=== PATIENT | male | born 1950 | race Caucasian/White ===

== ENCOUNTER 2019-11-01 12:43 | Emergency (ER) | payer MEDICARE, BC ==
[2019-11-01] MEDS ORDERED: Diltiazem 25 MG/5 ML SDV IVPUSH ONE ×2 (13:35→14:33)
[2019-11-01] MEDS ORDERED: Sodium Chloride 0.9% 1,000 ML IV SCH (13:45)
--- NOTE | 2019-11-01 13:45 | EDM.PDOC ---
ED HPI GENERAL MEDICAL PROBLEM - General Chief Complaint: Cardiovascular Problem Stated Complaint: ABD/GUT PAIN, CONSTIPATION Time Seen by Provider: 11/01/19 12:46 Source of Information: Reports: Patient History Limitations: Reports: No Limitations - History of Present Illness INITIAL COMMENTS - FREE TEXT/NARRATIVE: 68 y/o male on no medication and no signif health problems presents by personal car from the [facility] complaining of abdominal bloating and fast heart rate. It started 2 days ago. Symptoms worsen with working in his garage and better with rest. He denies SOB, chest pain or peripheral edema. He denies N/V , fever or chills. He is not sweating. He denies heart problems and is not a smoker. He denies DM. He denies a history of A. Fib. His etoh use is occasional. Abdomen Pain Score (Numeric/FACES): 2 - Related Data Allergies Allergy/AdvReac Type Severity Reaction Status Date / Time No Known Allergies Allergy Verified 11/01/19 14:09 Home Meds: Home Meds NK [No Known Home Meds] 11/01/19 [History] Past Medical History HEENT History: Reports: Hard of Hearing Gastrointestinal History: Reports: Chronic Constipation, Other (See Below) Other Gastrointestinal History: abd. pain Genitourinary History: Reports: Renal Calculus Musculoskeletal History: Reports: Other (See Below) Other Musculoskeletal History: burcitis both shoulders - Past Surgical History Head Surgeries/Procedures: Reports: None HEENT Surgical History: Reports: None GI Surgical History: Reports: None Male Surgical History: Reports: None Musculoskeletal Surgical History: Reports: None Social & Family History - Tobacco Use Smoking Status *Q: Former Smoker Years of Tobacco use: 20 Packs/Tins Daily: 1 Used Tobacco, but Quit: No ED ROS GENERAL - Review of Systems Review Of Systems: See Below Constitutional: Reports: Decreased Appetite. Denies: Fever, Chills, Diaphoresis HEENT: Reports: No Symptoms Respiratory: Denies: Shortness of Breath, Cough Cardiovascular: Denies: Chest Pain, Dyspnea on Exertion, Edema, Palpitations Endocrine: Denies: Polydypsia, Polyuria GI/Abdominal: Reports: Constipation, Distension. Denies: Nausea, Vomiting : Reports: No Symptoms. Denies: Dysuria, Frequency Musculoskeletal: Reports: No Symptoms Skin: Reports: No Symptoms Neurological: Denies: Syncope Psychiatric: Reports: No Symptoms ED EXAM, GENERAL - Physical Exam Exam: See Below Exam Limited By: No Limitations General Appearance: Alert, WD/WN, No Apparent Distress Nose: Normal Inspection, Normal Mucosa Head: Atraumatic, Normocephalic Neck: Normal Inspection, Supple, Other (No JVD) Respiratory/Chest: No Respiratory Distress, Lungs Clear, Normal Breath Sounds Cardiovascular: Normal Peripheral Pulses, No JVD GI/Abdominal: Normal Bowel Sounds, Soft, Non-Tender, No Distention Extremities: No: Pedal Edema Neurological: Alert, Oriented, Normal Cognition, Normal Gait Psychiatric: Normal Affect, Normal Mood Skin Exam: Warm, Dry, Intact Course - Vital Signs Text/Narrative:: This patient has new atrial fib and has been symptomatic for 2-5 days. His symptoms included abdominal bloating. His ECG from the clinic showed atrial fib with RVR and his BP was normal. His chest xr was non acute. His BNP was elevated and had a normal CBC and comprehensive metabolic profile except for an elevated bilirubin. He had a US that showed cholelithiasis without cholecystitis and a normal CBD. He was given IV diltiazem 15 mg bolus and responded well but did not convert to normal sinus. He eventually went back into a rapid vent rate and responded to another bolus of 20 mg with diltiazem CD 120 po. He felt much better with less abdominal distension. He had a CT abd and pelvis that showed some retroperitoneal stranding in fat pad layers that was anasarca. His CHADsVasc score is 1. We discussed elective cardioversion vs rate control and he wants to think about and will make an appointment with a primary care doctor in follow up and further discussion. He was given an Rx of Diltiazem CD 120 mg qd and Lasix 20 mg qd. He will make an appointment with a primary care or internal medicine doctor in the clinic. He will take a baby aspirin once a day (CHADsVAsc score is low and antiplatlet therapy is adequate for stroke prophylaxis). He was discharged from the ER in stable condition. Last Recorded V/S: Last Vital Signs Temp 36.3 C 11/01/19 13:14 Pulse 120 H 11/01/19 14:59 Resp 16 11/01/19 13:14 BP 121/69 11/01/19 14:59 Pulse Ox 98 11/01/19 13:14 - Orders/Labs/Meds Orders: Active Orders 24 hr Category Date Time Status URINALYSIS W/MICROSCOPIC [UA W/MICROSCOPIC] [URIN] Stat Lab 11/01/19 13:38 Ordered Sodium Chloride 0.9% [Normal Saline] 1,000 ml Med 11/01/19 13:45 Active IV ASDIRECTED Sodium Chloride 0.9% [Normal Saline] 100 ml Med 11/01/19 15:15 Active IV ASDIRECTED Medication Orders Sodium Chloride (Normal Saline) 1,000 mls @ 1,000 mls/hr IV ASDIRECTED JACQUES Last Admin: 11/01/19 13:42 Dose: 1,000 mls/hr Sodium Chloride (Normal Saline) 100 mls @ 3.5 mls/sec IV ASDIRECTED JACQUES Last Admin: 11/01/19 15:26 Dose: 3.5 mls/sec Labs: Laboratory Tests 11/01/19 11/01/19 11/01/19 Range/Units 13:45 13:45 13:45 WBC 5.4 (4.5-11.0) K/uL RBC 4.98 (4.30-5.90) M/uL Hgb 15.3 H (12.0-15.0) g/dL Hct 48.0 (40.0-54.0) % MCV 96 (80-98) fL MCH 31 (27-31) pg MCHC 32 (32-36) % Plt Count 144 L (150-400) K/uL Neut % (Auto) 65 (36-66) % Lymph % (Auto) 19 L (24-44) % [place] % (Auto) 14 H (2-6) % Eos % (Auto) 2 (2-4) % Baso % (Auto) 1 (0-1) % PT (9.5-12.0) sec INR (0.80-1.20) Sodium (140-148) mmol/L Potassium (3.6-5.2) mmol/L Chloride (100-108) mmol/L Carbon Dioxide (21-32) mmol/L Anion Gap (5.0-14.0) mmol/L BUN (7-18) mg/dL Creatinine (0.8-1.3) mg/dL Est Cr Clr Drug Dosing mL/min Estimated GFR (MDRD) (>60) Glucose (74-106) mg/dL Calcium (8.5-10.1) mg/dL Total Bilirubin (0.2-1.0) mg/dL AST (15-37) U/L ALT (12-78) U/L Alkaline Phosphatase (46-116) U/L C-Reactive Protein (0.0-0.3) mg/dL NT-Pro-B Natriuret Pep 1964 H (5-125) pg/mL Total Protein (6.4-8.2) g/dL Albumin (3.4-5.0) g/dL Globulin (2.3-3.5) g/dL Albumin/Globulin Ratio (1.2-2.2) Lipase (73-393) U/L TSH, Ultra Sensitive 2.032 (0.358-3.740) uIU/mL 11/01/19 11/01/19 11/01/19 Range/Units 13:45 13:45 13:45 WBC (4.5-11.0) K/uL RBC (4.30-5.90) M/uL Hgb (12.0-15.0) g/dL Hct (40.0-54.0) % MCV (80-98) fL MCH (27-31) pg MCHC (32-36) % Plt Count (150-400) K/uL Neut % (Auto) (36-66) % Lymph % (Auto) (24-44) % [place] % (Auto) (2-6) % Eos % (Auto) (2-4) % Baso % (Auto) (0-1) % PT 12.9 H (9.5-12.0) sec INR 1.21 H (0.80-1.20) Sodium 140 (140-148) mmol/L Potassium 4.3 (3.6-5.2) mmol/L Chloride 105 (100-108) mmol/L Carbon Dioxide 27 (21-32) mmol/L Anion Gap 8.5 (5.0-14.0) mmol/L BUN 18 (7-18) mg/dL Creatinine 1.1 (0.8-1.3) mg/dL Est Cr Clr Drug Dosing 68.59 mL/min Estimated GFR (MDRD) > 60 (>60) Glucose 90 (74-106) mg/dL Calcium 8.2 L (8.5-10.1) mg/dL Total Bilirubin 1.6 H (0.2-1.0) mg/dL AST 27 (15-37) U/L ALT 34 (12-78) U/L Alkaline Phosphatase 64 (46-116) U/L C-Reactive Protein 0.44 H (0.0-0.3) mg/dL NT-Pro-B Natriuret Pep (5-125) pg/mL Total Protein 6.2 L (6.4-8.2) g/dL Albumin 3.6 (3.4-5.0) g/dL Globulin 2.6 (2.3-3.5) g/dL Albumin/Globulin Ratio 1.4 (1.2-2.2) Lipase 80 (73-393) U/L TSH, Ultra Sensitive (0.358-3.740) uIU/mL Meds: Medications Generic Name Dose Route Start Last Admin Trade Name Freq PRN Reason Stop Dose Admin Sodium Chloride 1,000 mls @ 1,000 mls/hr 11/01/19 13:45 11/01/19 13:42 Normal Saline IV 1,000 mls/hr ASDIRECTED JACQUES Administration Sodium Chloride 100 mls @ 3.5 mls/sec 11/01/19 15:15 11/01/19 15:26 Normal Saline IV 3.5 mls/sec ASDIRECTED JACQUES Administration Discontinued Medications Generic Name Dose Route Start Last Admin Trade Name Freq PRN Reason Stop Dose Admin Diltiazem HCl 15 mg 11/01/19 13:35 11/01/19 13:45 Diltiazem IVPUSH 11/01/19 13:36 15 mg ONETIME ONE Administration Diltiazem HCl 20 mg 11/01/19 14:33 11/01/19 14:58 Diltiazem IVPUSH 11/01/19 14:34 20 mg ONETIME ONE Administration Diltiazem HCl 120 mg 11/01/19 14:33 11/01/19 14:59 Cardizem Cd PO 11/01/19 14:34 120 mg ONETIME ONE Administration Iopamidol 150 ml 11/01/19 15:15 11/01/19 15:26 Isovue-300 (61%) IV 150 ml . DIRECTED JACQUES Administration Sodium Chloride 10 ml 11/01/19 15:13 11/01/19 15:27 Saline Flush FLUSH 11/01/19 15:14 10 ml ONETIME ONE Administration Departure - Departure Time of Disposition: 16:05 Disposition: Home, Self-Care 01 Preliminary Cause of *Q: Sepsis & Multi System Organ Failure Condition: Good Clinical Impression: Atrial fibrillation with RVR Referrals: PCP,None [Primary Care Provider] - Forms: ED Department Discharge Additional Instructions: Follow up with a primary care provider or an internal Medicine doctor at the [facility] within the next week. Take medications as prescribed. Take one baby aspirin a day. Return to the ER as needed. Sepsis Event Note (ED) - Evaluation Sepsis Screening Result: No Definite Risk - Focused Exam Vital Signs: Vital Signs Temp Pulse Pulse Resp BP BP Pulse Ox 11/01/19 14:59 120 H 121/69 11/01/19 13:56 109 H 102/76 11/01/19 13:50 150 H 137/77 11/01/19 13:14 36.3 C 61 16 142/87 H 98 11/01/19 13:06 36.3 C 61 16 142/87 H 98 - My Orders Last 24 Hours: My Active Orders 11/01/19 13:38 URINALYSIS W/MICROSCOPIC [UA W/MICROSCOPIC] [URIN] Stat 11/01/19 13:45 Sodium Chloride 0.9% [Normal Saline] 1,000 ml IV ASDIRECTED 11/01/19 15:15 Sodium Chloride 0.9% [Normal Saline] 100 ml IV ASDIRECTED - Assessment/Plan Last 24 Hours: My Active Orders 11/01/19 13:38 URINALYSIS W/MICROSCOPIC [UA W/MICROSCOPIC] [URIN] Stat 11/01/19 13:45 Sodium Chloride 0.9% [Normal Saline] 1,000 ml IV ASDIRECTED 11/01/19 15:15 Sodium Chloride 0.9% [Normal Saline] 100 ml IV ASDIRECTED
[2019-11-01] MEDS ORDERED: Diltiazem 120 MG Cap.CD PO ONE (14:33)
--- NOTE | 2019-11-01 14:36 | CR ---
CHEST: 2 view CLINICAL HISTORY:Cough COMPARISON:None FINDINGS: Heart is moderately enlarged. Pulmonary vascular areas cephalized. Patient has a small right pleural effusion and a minimal left effusion. No infiltrates are seen. Impression: Moderate cardiac megaly with vascular cephalization suggests pulmonary venous hypertension Small bilateral pleural effusions, right greater than left
[2019-11-01] MEDS ORDERED: Sodium Chloride 0.9% 100 ML IV SCH (15:15)
[2019-11-01] MEDS ORDERED: Iopamidol 612 MG/ML 150 ML Bottle IV SCH (15:15)
[2019-11-01] MEDS: Sodium Chloride 0.9% 10 ML Syringe FLUSH ONE ×2 (15:19→15:27)
--- NOTE | 2019-11-01 15:25 | US ---
Abdomen Ltd CLINICAL HISTORY: Abdominal pain COMPARISON: None. TECHNIQUE: Real-time images were obtained through the right upper quadrant. FINDINGS: The liver is free of mass or biliary dilatation. There is a normal echotexture. The gallbladder contains a mobile gallstone. There is a small echogenic focus in the nondependent surface. This could represent a small polyp. The common bile duct measures 4 mm. The pancreas is shows no mass. The right kidney has a normal appearance. The IVC is normal. IMPRESSION: Cholelithiasis without biliary dilatation
--- NOTE | 2019-11-01 15:39 | CT ---
Abdomen Pelvis w Cont CLINICAL HISTORY: Abdominal distention COMPARISON: Noncontrast study 2010. TECHNIQUE: Axial tomographic images are obtained from the dome of the diaphragm to the pubic symphysis without IV contrast enhancement. No oral contrast was used. Auto dosage reduction and iterative reconstruction techniques employed. FINDINGS: The heart is enlarged. Patient has moderate right and small left pleural effusions The liver shows some fatty infiltration. The gallbladder contains a small stone in its dependent portion. There may be some mild gallbladder wall edema or thickening. The spleen has a normal size shape there is a small splenule. The pancreas shows no mass or inflammatory change. The adrenal glands appear normal bilaterally. The kidneys show no mass or stones.. The aorta has a normal contour. There is a suspicious retroperitoneal adenopathy. There is some stranding in the lower retroperitoneal fat, greater on the left. No focal fluid collections identified. There is some edema in the subcutaneous tissue. No free fluid collections are identified. Small intestinal configuration is nonacute. The appendix is not definitively identified. Bladder is thick-walled. Prostate and seminal vesicles are enlarged. IMPRESSION: There is some stranding in the retroperitoneal and some mesenteric fat planes. There is also some mild subcutaneous edema. Anasarca is not excluded Small right pleural effusion Cardiomegaly. Small stone in the midportion the gallbladder with some mild gallbladder wall thickening or edema Bladder wall hypertrophy with enlarged seminal vesicles and an enlarged prostate
== END 2019-11-01 16:35 | disposition home or self-care (01) ==
LOC: JP.ED 12:43
DX: I48.91 Unspecified atrial fibrillation (principal); Z87.891 Personal history of nicotine dependence
CPT/HCPCS: 36415; 71046; 74177; 76705; 80053; 81001; 83690; 83880; 84443; 85025; 85610; 86140; 96374; 96376; 99285; A9270; J3490; J7030; J7050; Q9967

== ENCOUNTER 2019-11-05 15:17 | Observation (INO) | payer MEDICARE, BC ==
--- NOTE | 2019-11-05 15:30 | EDM.PDOC ---
ED HPI GENERAL MEDICAL PROBLEM - General Chief Complaint: Chest Pain Stated Complaint: A FIB Time Seen by Provider: 11/05/19 15:30 Source of Information: Reports: Patient History Limitations: Reports: No Limitations - History of Present Illness INITIAL COMMENTS - FREE TEXT/NARRATIVE: 68 year old male presents to ER for chest pressure and rapid heart rate. Patient was evaluated in the ER on Friday for similar symptoms but abdominal bloating noted. Abdominal work-up was completed with no acute findings to suggest intra abdominal pathology causing symptoms. Work-up included CXR, CT ABD/Pelvis and ABD US in additional to blood work. Patient was started on ASA 81mg daily, Cardizem 120mg XR for rate control and Lasix 20 mg daily due to signs on heart failure secondary to A fib. Patient was discharged home with oral medications. Unfortunately patient has had continue elevated heart rate over the last 3 days despite taking medications. Patient felt worse on Friday but became concerned today after recurrent symptoms this am with elevated heart rate, chest pressure and lightheadedness. Patient was hoping symptoms would get better after taking his medications but no improvement after taking medications. Patient's symptoms have continued prompting ER visit today. Anterior Chest Pain Score (Numeric/FACES): 3 - Related Data Allergies Allergy/AdvReac Type Severity Reaction Status Date / Time No Known Allergies Allergy Verified 11/05/19 15:40 Home Meds: Home Meds Aspirin [Yasmeen Chewable] 81 mg PO DAILY 11/05/19 [History] Diltiazem [Cardizem CD] 120 mg PO DAILY 11/05/19 [History] Furosemide 1 tab PO DAILY 11/05/19 [History] Past Medical History HEENT History: Reports: Hard of Hearing Gastrointestinal History: Reports: Chronic Constipation, Other (See Below) Other Gastrointestinal History: abd. pain Genitourinary History: Reports: Renal Calculus Musculoskeletal History: Reports: Other (See Below) Other Musculoskeletal History: burcitis both shoulders - Past Surgical History Head Surgeries/Procedures: Reports: None HEENT Surgical History: Reports: None GI Surgical History: Reports: None Male Surgical History: Reports: None Musculoskeletal Surgical History: Reports: None ED ROS GENERAL - Review of Systems Review Of Systems: Comprehensive ROS is negative, except as noted in HPI. ED EXAM, GENERAL - Physical Exam Exam: See Below Exam Limited By: No Limitations General Appearance: Alert, WD/WN, Moderate Distress (due to chest pressure and rapid heart rate) Eye Exam: Bilateral Eye: EOMI, Normal Inspection Ears: Hearing Loss (very poor hearing) Nose: Normal Inspection Throat/Mouth: Normal Inspection, Normal Voice, No Airway Compromise Neck: Normal Inspection, Non-Tender, Full Range of Motion Respiratory/Chest: No Respiratory Distress, Lungs Clear, Normal Breath Sounds, No Accessory Muscle Use, Chest Non-Tender, Crackles (slight in bilateral bases noted). No: Respiratory Distress Cardiovascular: Normal Peripheral Pulses, No Edema (pedial), Tachycardia, Irregularly Irregular. No: Regular Rate, Rhythm GI/Abdominal: Normal Bowel Sounds, Soft, Non-Tender (Male) Exam: Deferred Rectal (Males) Exam: Deferred Extremities: Normal Inspection, Normal Range of Motion, Non-Tender, No Pedal Edema Neurological: Alert, Oriented, CN II-XII Intact, Normal Cognition, Normal Gait, Normal Reflexes, No Motor/Sensory Deficits Psychiatric: Normal Affect (slightly anxious due to cardiac concerns ), Normal Mood, Anxious Skin Exam: Warm, Dry, Intact, Normal Color, No Rash EKG INTERPRETATION EKG Date: 11/05/19 Time: 15:19 Rhythm: A-Fib Rate (Beats/Min): 110 Vancleve: Normal P-Wave: Variable QRS: Other (left fascicular block reported on EKG) ST-T: Normal QT: Prolonged Comparison: NA - No Prior EKG (Telemetry noted but no EKG on file) Course - Vital Signs Last Recorded V/S: Last Vital Signs Temp 36.6 C 11/05/19 15:55 Pulse 114 H 11/05/19 16:03 Resp 19 11/05/19 16:03 BP 112/72 11/05/19 16:03 Pulse Ox 94 L 11/05/19 16:03 - Orders/Labs/Meds Orders: Active Orders 24 hr Category Date Time Status Cardiac Monitoring [RC] .As Directed Care 11/05/19 15:36 Active EKG Documentation Completion [RC] ASDIRECTED Care 11/05/19 15:37 Active Peripheral IV Care [RC] . DIRECTED Care 11/05/19 15:37 Active MAGNESIUM [CHEM] Urgent Lab 11/05/19 16:18 Ordered Diltiazem [Cardizem] 100 mg Med 11/05/19 16:15 Active Sodium Chloride 0.9% [Normal Saline] 100 ml IV TITRATE Sodium Chloride 0.9% [Normal Saline] 1,000 ml Med 11/05/19 16:00 Active IV ASDIRECTED Sodium Chloride 0.9% [Saline Flush] Med 11/05/19 15:36 Active 10 ml FLUSH ASDIRECTED PRN Peripheral IV Insertion Adult [OM.PC] Stat Oth 11/05/19 15:36 Ordered EKG 12 Lead [EK] Stat Ther 11/05/19 15:37 Ordered Medication Orders Sodium Chloride (Normal Saline) 1,000 mls @ 500 mls/hr IV ASDIRECTED JACQUES Last Admin: 11/05/19 16:05 Dose: 500 mls/hr Documented by: ZACK Diltiazem HCl 100 mg/ Sodium (Chloride) 100 mls @ 5 mls/hr IV TITRATE JACQUES; Protocol Last Admin: 11/05/19 16:24 Dose: 5 mg/hr, 5 mls/hr Documented by: ZACK Sodium Chloride (Saline Flush) 10 ml FLUSH ASDIRECTED PRN PRN Reason: Keep Vein Open Labs: Laboratory Tests 11/05/19 11/05/19 11/05/19 Range/Units 15:47 15:47 15:47 WBC 4.6 (4.5-11.0) K/uL RBC 4.98 (4.30-5.90) M/uL Hgb 15.6 H (12.0-15.0) g/dL Hct 47.9 (40.0-54.0) % MCV 96 (80-98) fL MCH 31 (27-31) pg MCHC 33 (32-36) % Plt Count 152 (150-400) K/uL Neut % (Auto) 57 (36-66) % Lymph % (Auto) 27 (24-44) % [place] % (Auto) 13 H (2-6) % Eos % (Auto) 3 (2-4) % Baso % (Auto) 0 (0-1) % D-Dimer, Quantitative 656 H (0.0-400.0) ng/mL Sodium 142 (140-148) mmol/L Potassium 3.9 (3.6-5.2) mmol/L Chloride 106 (100-108) mmol/L Carbon Dioxide 27 (21-32) mmol/L Anion Gap 9.4 (5.0-14.0) mmol/L BUN 19 H (7-18) mg/dL Creatinine 1.1 (0.8-1.3) mg/dL Est Cr Clr Drug Dosing 90.20 mL/min Estimated GFR (MDRD) > 60 (>60) Glucose 106 (74-106) mg/dL Calcium 8.3 L (8.5-10.1) mg/dL Total Bilirubin 1.4 H (0.2-1.0) mg/dL AST 22 (15-37) U/L ALT 32 (12-78) U/L Alkaline Phosphatase 60 (46-116) U/L Troponin I < 0.017 (0.000-0.056) ng/mL NT-Pro-B Natriuret Pep 1597 H (5-125) pg/mL Total Protein 6.4 (6.4-8.2) g/dL Albumin 3.5 (3.4-5.0) g/dL Globulin 2.9 (2.3-3.5) g/dL Albumin/Globulin Ratio 1.2 (1.2-2.2) Meds: Medications Generic Name Dose Route Start Last Admin Trade Name Freq PRN Reason Stop Dose Admin Sodium Chloride 1,000 mls @ 500 mls/hr 11/05/19 16:00 11/05/19 16:05 Normal Saline IV 500 mls/hr ASDIRECTED JACQUES Administration Diltiazem HCl 100 mg/ Sodium 100 mls @ 5 mls/hr 11/05/19 16:15 11/05/19 16:24 Chloride IV 5 mg/hr TITRATE JACQUES 5 mls/hr Administration Protocol 5 MG/HR Sodium Chloride 10 ml 11/05/19 15:36 Saline Flush FLUSH ASDIRECTED PRN Keep Vein Open Discontinued Medications Generic Name Dose Route Start Last Admin Trade Name Freq PRN Reason Stop Dose Admin Diltiazem HCl 100 mg/ Sodium 100 mls @ 5 mls/hr 11/05/19 16:15 Chloride IV TITRATE JACQUES Protocol 5 MG/HR - Radiology Interpretation Free Text/Narrative:: CXR PA: Cardiomegaly noted with slight effusions bilateral bases with increased vascular changes noted. Images read by myself and radiology report reviewed during ER visit Radiology Impression: Moderate cardiomegaly with mild vascular cephalization similar to prior study. Small bibasal effusion similar to prior study. Departure - Departure Time of Disposition: 16:40 Disposition: Admitted As Inpatient 64 Clinical Impression: Atrial fibrillation with RVR Referrals: PCP,None [Primary Care Provider] - Forms: ED Department Discharge Sepsis Event Note (ED) - Focused Exam Vital Signs: Vital Signs Temp Pulse Resp BP Pulse Ox 11/05/19 16:03 114 H 19 112/72 94 L 11/05/19 15:55 36.6 C 122 H 20 118/85 97 - My Orders Last 24 Hours: My Active Orders 11/05/19 15:36 Cardiac Monitoring [RC] .As Directed Sodium Chloride 0.9% [Saline Flush] 10 ml FLUSH ASDIRECTED PRN Peripheral IV Insertion Adult [OM.PC] Stat 11/05/19 15:37 EKG Documentation Completion [RC] ASDIRECTED Peripheral IV Care [RC] . DIRECTED EKG 12 Lead [EK] Stat 11/05/19 16:00 Sodium Chloride 0.9% [Normal Saline] 1,000 ml IV ASDIRECTED 11/05/19 16:15 Diltiazem [Cardizem] 100 mg Sodium Chloride 0.9% [Normal Saline] 100 ml IV TITRATE - Assessment/Plan Last 24 Hours: My Active Orders 11/05/19 15:36 Cardiac Monitoring [RC] .As Directed Sodium Chloride 0.9% [Saline Flush] 10 ml FLUSH ASDIRECTED PRN Peripheral IV Insertion Adult [OM.PC] Stat 11/05/19 15:37 EKG Documentation Completion [RC] ASDIRECTED Peripheral IV Care [RC] . DIRECTED EKG 12 Lead [EK] Stat 11/05/19 16:00 Sodium Chloride 0.9% [Normal Saline] 1,000 ml IV ASDIRECTED 11/05/19 16:15 Diltiazem [Cardizem] 100 mg Sodium Chloride 0.9% [Normal Saline] 100 ml IV TITRATE
[2019-11-05] MEDS ORDERED: Sodium Chloride 0.9% 10 ML Syringe FLUSH PRN (15:36)
[2019-11-05] MEDS ORDERED: Sodium Chloride 0.9% 1,000 ML IV SCH ×2 (16:00→17:36)
--- NOTE | 2019-11-05 16:05 | CR ---
CHEST: Portable 11/05/2019 at 4:01 PM CLINICAL HISTORY:Chest pain COMPARISON:11/01/2019 FINDINGS: Heart is enlarged. Pulmonary vascularity is mildly cephalized similar to the 2014 2019 study. There is a small right and minimal left pleural effusion similar to prior study. Impression: Moderate cardiomegaly with mild vascular cephalization similar to prior study Small bibasal effusions similar to prior study
[2019-11-05] MEDS ORDERED: Diltiazem 100 MG in Sodium Chloride 0.9% 100 ML IV SCH (16:15)
[2019-11-05] MEDS: Diltiazem 100 MG in Sodium Chloride 0.9% 100 ML IV SCH (16:24)
--- NOTE | 2019-11-05 17:20 | PCM.HP.2 ---
H&P History of Present Illness - General Date of Service: 11/05/19 Admit Problem/Dx: Admission Diagnosis/Problem Admission Diagnosis/Problem Atrial fibrillation with rapid ventricular response Source of Information: Patient, Provider History Limitations: Reports: No Limitations - History of Present Illness Initial Comments - Free Text/Narative: CC: My heart was racing HPI: Feliz presents to the emergency room today with palpitations and chest pressure. He has not felt well over the last week or so. Initially his symptoms were some abdominal distention and bloating. He was evaluated for these on Friday and had an extensive work-up including laboratory studies, abdominal ultrasound and a CT of the abdomen that did not show any significant abnormalities. He was noted to be in atrial fibrillation with a mild elevation of his heart rate at that time. He was started on aspirin and diltiazem but went home with outpatient follow-up. He felt well on Friday, Friday and . He did note some dyspnea with exertion but not bad. This morning he had some chest pressure when he woke up as well as palpitations. These were re latively mild but did catch his attention. He does not report any chest pain. He has not had any fevers. He does not have a cough. Appetite has been down a little bit over the past few days and he has been constipated. He does report some orthopnea. He does have a history of snoring but has never had a test for sleep apnea. No history of heart troubles. He reports only rare use of alcohol. He does occasionally have some lower extremity edema but this is usually relatively mild. Work-up in the emergency room revealed normal labs. Chest x-ray showed cardiomegaly. He was in atrial fibrillation with heart rate in the 120-140 range. He has been started on a diltiazem infusion. Troponin was negative. He will be admitted for management of his atrial fibrillation. Anterior Chest Pain Score (Numeric/FACES): 3 - Related Data Allergies/Adverse Reactions: Allergies Allergy/AdvReac Type Severity Reaction Status Date / Time No Known Allergies Allergy Verified 11/05/19 15:40 Home Medications: Home Meds Aspirin [Yasmeen Chewable] 81 mg PO DAILY 11/05/19 [History] Diltiazem [Cardizem CD] 120 mg PO DAILY 11/05/19 [History] Furosemide 1 tab PO DAILY 11/05/19 [History] Past Medical History HEENT History: Reports: Hard of Hearing Cardiovascular History: Reports: Afib Gastrointestinal History: Reports: Chronic Constipation, Other (See Below) Other Gastrointestinal History: abd. pain Genitourinary History: Reports: Renal Calculus Musculoskeletal History: Reports: Other (See Below) Other Musculoskeletal History: burcitis both shoulders - Infectious Disease History Infectious Disease History: Reports: Chicken Pox, Measles, Mumps - Past Surgical History Head Surgeries/Procedures: Reports: None HEENT Surgical History: Reports: None GI Surgical History: Reports: None Male Surgical History: Reports: None Musculoskeletal Surgical History: Reports: None Social & Family History - Family History Cardiac: Denies: CAD Respiratory: Reports: Sleep Apnea (brother) - Tobacco Use Smoking Status *Q: Former Smoker Years of Tobacco use: 21 Packs/Tins Daily: 1 Used Tobacco, but Quit: Yes Month/Year Tobacco Last Used: 2016 Second Hand Smoke Exposure: No - Caffeine Use Caffeine Use: Reports: None - Alcohol Use Days Per Week of Alcohol Use: 0 - Recreational Drug Use Recreational Drug Use: No H&P Review of Systems - Review of Systems: Review Of Systems: See Below Free Text/Narrative: A complete 12 point review of systems was obtained. Pertinent positives and negatives are noted in the history of present illness. All other systems were reviewed and were negative except as noted. Exam - Exam Exam: See Below - Vital Signs Vital Signs: Last Vital Signs Temp 36.6 C 11/05/19 15:55 Pulse 133 H 11/05/19 17:00 Resp 18 11/05/19 17:00 BP 115/91 H 11/05/19 17:00 Pulse Ox 94 L 11/05/19 17:00 Weight: 102.058 kg - Exam Quality Assessment: No: Supplemental Oxygen General: Alert, Oriented, Cooperative. No: Mild Distress HEENT: Conjunctiva Clear, Mucosa Moist & Justice. No: Scleral Icterus Neck: Supple, Trachea Midline. No: Lymphadenopathy, JVD Lungs: Clear to Auscultation, Normal Respiratory Effort Cardiovascular: Irregular Rhythm, Tachycardia. No: Systolic Murmur GI/Abdominal Exam: Normal Bowel Sounds, Soft, Non-Tender, No Distention Back Exam: Normal Inspection, Full Range of Motion Extremities: Pedal Edema (mild bilateral ankle edema). No: Increased Warmth Peripheral Pulses: 2+: Dorsalis Pedis (L), Dorsalis Pedis (R) Skin: Warm, Dry Neuro Extensive - Mental Status: Alert, Oriented x3, Nl Response to Commands Neuro Extensive - Motor, Sensory, Reflexes: No: Dysarthria, Abnormal Motor, Tremor Psychiatric: Alert, Normal Affect - Patient Data Lab Results Last 24 hrs: Laboratory Results - last 24 hr 11/05/19 11/05/19 11/05/19 Range/Units 15:47 15:47 15:47 WBC 4.6 (4.5-11.0) K/uL RBC 4.98 (4.30-5.90) M/uL Hgb 15.6 H (12.0-15.0) g/dL Hct 47.9 (40.0-54.0) % MCV 96 (80-98) fL MCH 31 (27-31) pg MCHC 33 (32-36) % Plt Count 152 (150-400) K/uL Neut % (Auto) 57 (36-66) % Lymph % (Auto) 27 (24-44) % [place] % (Auto) 13 H (2-6) % Eos % (Auto) 3 (2-4) % Baso % (Auto) 0 (0-1) % D-Dimer, Quantitative 656 H (0.0-400.0) ng/mL Sodium 142 (140-148) mmol/L Potassium 3.9 (3.6-5.2) mmol/L Chloride 106 (100-108) mmol/L Carbon Dioxide 27 (21-32) mmol/L Anion Gap 9.4 (5.0-14.0) mmol/L BUN 19 H (7-18) mg/dL Creatinine 1.1 (0.8-1.3) mg/dL Est Cr Clr Drug Dosing 90.20 mL/min Estimated GFR (MDRD) > 60 (>60) Glucose 106 (74-106) mg/dL Calcium 8.3 L (8.5-10.1) mg/dL Magnesium (1.8-2.4) mg/dL Total Bilirubin 1.4 H (0.2-1.0) mg/dL AST 22 (15-37) U/L ALT 32 (12-78) U/L Alkaline Phosphatase 60 (46-116) U/L Troponin I < 0.017 (0.000-0.056) ng/mL NT-Pro-B Natriuret Pep 1597 H (5-125) pg/mL Total Protein 6.4 (6.4-8.2) g/dL Albumin 3.5 (3.4-5.0) g/dL Globulin 2.9 (2.3-3.5) g/dL Albumin/Globulin Ratio 1.2 (1.2-2.2) Ethyl Alcohol mg/dL 11/05/19 11/05/19 Range/Units 16:18 16:33 WBC (4.5-11.0) K/uL RBC (4.30-5.90) M/uL Hgb (12.0-15.0) g/dL Hct (40.0-54.0) % MCV (80-98) fL MCH (27-31) pg MCHC (32-36) % Plt Count (150-400) K/uL Neut % (Auto) (36-66) % Lymph % (Auto) (24-44) % [place] % (Auto) (2-6) % Eos % (Auto) (2-4) % Baso % (Auto) (0-1) % D-Dimer, Quantitative (0.0-400.0) ng/mL Sodium (140-148) mmol/L Potassium (3.6-5.2) mmol/L Chloride (100-108) mmol/L Carbon Dioxide (21-32) mmol/L Anion Gap (5.0-14.0) mmol/L BUN (7-18) mg/dL Creatinine (0.8-1.3) mg/dL Est Cr Clr Drug Dosing mL/min Estimated GFR (MDRD) (>60) Glucose (74-106) mg/dL Calcium (8.5-10.1) mg/dL Magnesium 1.8 (1.8-2.4) mg/dL Total Bilirubin (0.2-1.0) mg/dL AST (15-37) U/L ALT (12-78) U/L Alkaline Phosphatase (46-116) U/L Troponin I (0.000-0.056) ng/mL NT-Pro-B Natriuret Pep (5-125) pg/mL Total Protein (6.4-8.2) g/dL Albumin (3.4-5.0) g/dL Globulin (2.3-3.5) g/dL Albumin/Globulin Ratio (1.2-2.2) Ethyl Alcohol < 3 mg/dL Result Diagrams: 11/05/19 15:47 11/05/19 15:47 Imaging Impressions Last 24 hrs: CXR-images personally reviewed and compared to 10/31-lungs are clear with no mass, infiltrate or effusion. There is cardiomegally. Mild cephalization. EKG INTERPRETATION EKG Date: 11/05/19 Rhythm: A-Fib Rate (Beats/Min): 110 Rosine: LAD-Left Rosine Deviation (LAFB) P-Wave: Variable QRS: Normal ST-T: Normal QT: Normal Sepsis Event Note - Focused Exam Vital Signs: Vital Signs Temp Pulse Resp BP Pulse Ox 11/05/19 17:00 133 H 18 115/91 H 94 L 11/05/19 16:45 111 H 21 H 126/53 L 93 L 11/05/19 16:31 140 H 18 109/83 96 11/05/19 16:15 94 22 H 105/78 95 11/05/19 16:03 114 H 19 112/72 94 L 11/05/19 15:55 36.6 C 122 H 20 118/85 97 Date Exam was Performed: 11/05/19 Time Exam was Performed: 17:37 *Q Meaningful Use (ADM) - VTE Risk Assess *Q Each Risk Factor Represents 1 Point: Obesity ( BMI > 25 kg/m2), Congestive heart failure (CHF) Total Score 1 Point Risk Factors: 2 Each Risk Factor Represents 2 Points: Age 60 - 74 Years Total Score 2 Point Risk Factors: 2 Each Risk Factor Represents 3 Points: None Total Score 3 Point Risk Factors: 0 Each Risk Factor Represents 5 Points: None Total Score 5 Point Risk Factors: 0 Venous Thromboembolism Risk Factor Score *Q: 4 - Problem List (1) Atrial fibrillation with RVR SNOMED Code(s): 578513086090176 ICD Code: I48.91 - UNSPECIFIED ATRIAL FIBRILLATION Status: Acute Current Visit: Yes Problem List Initiated/Reviewed/Updated: Yes Orders Last 24hrs: Active Orders 24 hr Category Date Time Status Patient Status Manage Transfer [TRANSFER] Routine ADT 11/05/19 17:10 Active Cardiac Monitoring [RC] .As Directed Care 11/05/19 15:36 Active EKG Documentation Completion [RC] ASDIRECTED Care 11/05/19 15:37 Active Peripheral IV Care [RC] . DIRECTED Care 11/05/19 15:37 Active Diltiazem [Cardizem] 100 mg Med 11/05/19 16:15 Active Sodium Chloride 0.9% [Normal Saline] 100 ml IV TITRATE Sodium Chloride 0.9% [Normal Saline] 1,000 ml Med 11/05/19 16:00 Active IV ASDIRECTED Sodium Chloride 0.9% [Saline Flush] Med 11/05/19 15:36 Active 10 ml FLUSH ASDIRECTED PRN Peripheral IV Insertion Adult [OM.PC] Stat Oth 11/05/19 15:36 Ordered Resuscitation Status Routine Resus Stat 11/05/19 17:11 Ordered EKG 12 Lead [EK] Stat Ther 11/05/19 15:37 Ordered Medication Orders Sodium Chloride (Normal Saline) 1,000 mls @ 500 mls/hr IV ASDIRECTED JACQUES Last Admin: 11/05/19 16:05 Dose: 500 mls/hr Documented by: ZACK Diltiazem HCl 100 mg/ Sodium (Chloride) 100 mls @ 5 mls/hr IV TITRATE JACQUES; Protocol Last Admin: 11/05/19 16:24 Dose: 5 mg/hr, 5 mls/hr Documented by: ZACK Sodium Chloride (Saline Flush) 10 ml FLUSH ASDIRECTED PRN PRN Reason: Keep Vein Open Assessment/Plan Comment:: ASSESSMENT AND PLAN - Paroxysmal atrial fibrillation with rapid ventricular response-patient has been in or may be in and out of atrial fibrillation over the past at least 1 week. No history of heart disease. No evidence for infection. Kidney function and electrolytes are acceptable. He does have a history of snoring and family history of sleep apnea so this could be a possibility. D-dimer is only very mildly elevated and I doubt that this is a pulmonary embolism. Bedside ultra sound did show a dilated cardiomyopathy with global hypokinesis but it is unclear if this led to the atrial fibrillation or was caused by the atrial fibrillation. He does have some mild to moderate mitral regurgitation but no other major valve abnormalities that I can see. TSH was normal a few days ago. No significant evidence for volume overload at this time. -Continue diltiazem infusion -Start metoprolol 12 mg every 8 hours and titrate -Overnight pulse oximetry -Cardiac monitoring -Continue aspirin -Outpatient echo -Outpatient stress test -Consider sleep study Maintenance issues - - DVT prophylaxis -enoxaparin - GI prophylaxis -not indicated - Nutrition -regular - Fraser catheter -not indicated CODE STATUS -full code Admission justification -patient will be referred observation status for management of his atrial fibrillation Disposition -I would anticipate discharge home after the hospital stay Primary care physician -Noe Pulido M.D. - Mortality Measure Prognosis:: Good
[2019-11-05] MEDS ORDERED: LORazepam 2 MG/ML SDV IVPUSH PRN (17:36)
[2019-11-05] MEDS ORDERED: Ondansetron 4 MG Tab.DIS PO PRN (17:36)
[2019-11-05] MEDS ORDERED: Ondansetron 4 MG/2 ML SDV IV PRN (17:36)
[2019-11-05] MEDS ORDERED: Magnesium Hydroxide 400 MG/5 ML Susp 30 ML Cup PO PRN (17:36)
[2019-11-05] MEDS ORDERED: Acetaminophen 325 MG Tab PO PRN (17:36)
[2019-11-05] MEDS ORDERED: Enoxaparin 40 MG/0.4 ML Syringe SUBCUT SCH (18:00)
[2019-11-05] MEDS ORDERED: Metoprolol Tartrate 25 MG Tab PO SCH (18:00)
[2019-11-06] MEDS ORDERED: Metoprolol Tartrate 25 MG Tab PO SCH ×2 (01:30→10:00)
[2019-11-06] MEDS: Diltiazem 100 MG in Sodium Chloride 0.9% 100 ML IV SCH (07:51)
[2019-11-06] MEDS ORDERED: Aspirin 81 MG Tab.EC PO SCH (09:00)
[2019-11-06] MEDS ORDERED: Diltiazem 120 MG Cap.CD PO SCH (10:30)
[2019-11-06] MEDS ORDERED: Metoprolol Succinate 25 MG Tab.ER PO ONE (11:00)
--- NOTE | 2019-11-06 14:41 | PCM.DCSUM1 ---
Discharge Summary - Hospital Course Brief History: 68-year-old male with recent diagnosis of paroxysmal atrial fibrillation who presented with palpitations and chest pressure. He was admitted for management of rapid atrial fibrillation. Diagnosis: Stroke: No - Discharge Data Discharge Date: 11/06/19 Discharge Disposition: Home, Self-Care 01 Condition: Fair - Referral to Home Health Primary Care Physician: PCP None - Discharge Diagnosis/Problem(s) (1) Atrial fibrillation with RVR SNOMED Code(s): 042949715586684 ICD Code: I48.91 - UNSPECIFIED ATRIAL FIBRILLATION Status: Acute (2) Obstructive sleep apnea SNOMED Code(s): 64807406 ICD Code: G47.33 - OBSTRUCTIVE SLEEP APNEA (ADULT) (PEDIATRIC) Status: Suspected - Patient Summary/Data Hospital Course: Feliz presented to the emergency room with palpitations as well as substernal chest pressure. He was seen in the emergency room several days prior and diagnosed with atrial fibrillation. He was started on furosemide to help with some mild volume overload and diltiazem to help control the rate. He felt well for the next few days but then had return of palpitations. In the emergency room he had reassuring laboratory studies. He did have atrial fibrillation with a rapid response and heart rates in the 120s to 140s. I did look at his heart with a bedside ultrasound and saw that he had a dilated cardiomyopathy with decreased ejection fraction. Based on his history I suspect that he had obstructive sleep apnea as the cause for the cardiomyopathy and atrial fibrillation. We admitted him to the intensive care unit on a diltiazem infusion. Serial troponin levels were undetectable. We achieved some improvement in rate control with the diltiazem and added a low-dose beta- elena. He tolerated these medications well and eventually were able to achieve fairly good rate control of his atrial fibrillation. With the overnight oximetry we did notice prolonged desaturations in the mid 80s consistent with obstructive sleep apnea. These did improve with supplemental oxygen. I suspect that longstanding and untreated obstructive sleep apnea have led to stress on the heart and lead to the atrial fibrillation as well as the dilated cardiomyopathy. My hope is that with medical management and a formal treatment plan for sleep apnea that his cardiac function will normalize. He has no evidence for ischemic disease and has a good functional status. We did add metoprolol in the long-acting formulation to his diltiazem. His blood pressures have tolerated this medication well with systolic blood pressures in the 100-110 range. His heart rate has been in the 90s and sometimes slower. He has been up and walking around and feels well. His chest pressure has resolved. He did finally have a bowel movement as he had been struggling with this for several days. He is interested in going home with outpatient follow-up at this point and I believe he is safe. He should request a sleep study to be set up at his outpatient visit. A formal echocardiogram could be considered as it was not available over the weekend. He would benefit from early follow-up and will hopefully be establishing care closer to his home ([facility]). He does have an elevated CHADS-VASC score with his age and congestive heart failure. We have deferred starting anticoagulation at this time with the hope that treatment will return him to a normal rhythm. If he persists in atrial fibrillation we may need to consider systemic anticoagulation. - Patient Instructions Diet: Heart Healthy Diet Activity: As Tolerated Showering/Bathing: May Shower Notify Provider of: Fever, Increased Pain Other/Special Instructions: 1. You were in the hospital for management of paroxysmal atrial fibrillation with a rapid ventricular response. I suspect that you have the rapid atrial fibrillation caused by an enlarged heart that possibly resulted from untreated obstructive sleep apnea. My hope is that your heart will improve and return to normal with treatment for the sleep apnea. You will need to talk to your primary care provider about scheduling an outpatient sleep study. In the meantime, I recommend that you use oxygen at 2 L/min while you are sleeping. To manage the atrial fibrillation you should continue to take the medications prescribed on Friday including aspirin, furosemide and diltiazem. In addition to those medications please start taking metoprolol succinate 50 mg once daily. You may take all 4 medications at the same time. You should follow-up earlier this week for both hospital follow-up and to establish care. I would recommend seeing a provider at the [facility] in [place], [place]. 2. During the hospital stay we observed that your oxygen saturations dropped below 88% while you are sleeping and persisted for several minutes at a time. This is felt to be consistent with obstructive sleep apnea. I do recommend nocturnal oxygen therapy to help reduce the stress on the heart c aused by obstructive sleep apnea until you can have a formal sleep study and potentially get started on CPAP therapy. You should use 2 L/min of oxygen while you are sleeping. - Discharge Plan *PRESCRIPTION DRUG MONITORING PROGRAM REVIEWED*: Not Applicable *COPY OF PRESCRIPTION DRUG MONITORING REPORT IN PATIENT BARTOLOME: Not Applicable Prescriptions/Med Rec: Metoprolol Succinate 50 mg PO DAILY #30 tab.er.24h Home Medications: Home Meds Aspirin [Yasmeen Chewable Aspirin] 81 mg PO DAILY 11/05/19 [History] Diltiazem [Cardizem CD] 120 mg PO DAILY 11/05/19 [History] Furosemide 1 tab PO DAILY 11/05/19 [History] Metoprolol Succinate 50 mg PO DAILY #30 tab.er.24h 11/06/19 [Rx] Oxygen Therapy Mode: Room Air Patient Handouts: Sleep Apnea, Atrial Fibrillation, [id number] Referrals: PCP,None [Primary Care Provider] - (f/u with provider in [place] this week- tablet care and hospital follow-up for atrial fibrillation and possible obstructive sleep apnea) - Discharge Summary/Plan Comment DC Time >30 min.: Yes (40-setting up home oxygen ) - Patient Data Vitals - Most Recent: Last Vital Signs Temp 37 C 11/05/19 18:18 Pulse 88 11/06/19 11:27 Resp 18 11/06/19 11:27 BP 93/64 11/06/19 11:27 Pulse Ox 95 11/06/19 11:27 Weight - Most Recent: 230 kg I&O - Last 24 hours: Intake & Output 11/05/19 11/06/19 11/06/19 22:59 06:59 14:59 Intake Total 2349 Balance 2349 Lab Results - Last 24 hrs: Laboratory Results - last 24 hr 11/05/19 11/05/19 11/05/19 Range/Units 15:47 15:47 15:47 WBC 4.6 (4.5-11.0) K/uL RBC 4.98 (4.30-5.90) M/uL Hgb 15.6 H (12.0-15.0) g/dL Hct 47.9 (40.0-54.0) % MCV 96 (80-98) fL MCH 31 (27-31) pg MCHC 33 (32-36) % Plt Count 152 (150-400) K/uL Neut % (Auto) 57 (36-66) % Lymph % (Auto) 27 (24-44) % [place] % (Auto) 13 H (2-6) % Eos % (Auto) 3 (2-4) % Baso % (Auto) 0 (0-1) % D-Dimer, Quantitative 656 H (0.0-400.0) ng/mL Sodium 142 (140-148) mmol/L Potassium 3.9 (3.6-5.2) mmol/L Chloride 106 (100-108) mmol/L Carbon Dioxide 27 (21-32) mmol/L Anion Gap 9.4 (5.0-14.0) mmol/L BUN 19 H (7-18) mg/dL Creatinine 1.1 (0.8-1.3) mg/dL Est Cr Clr Drug Dosing 90.20 mL/min Estimated GFR (MDRD) > 60 (>60) Glucose 106 (74-106) mg/dL Calcium 8.3 L (8.5-10.1) mg/dL Magnesium (1.8-2.4) mg/dL Total Bilirubin 1.4 H (0.2-1.0) mg/dL AST 22 (15-37) U/L ALT 32 (12-78) U/L Alkaline Phosphatase 60 (46-116) U/L Troponin I < 0.017 (0.000-0.056) ng/mL NT-Pro-B Natriuret Pep 1597 H (5-125) pg/mL Total Protein 6.4 (6.4-8.2) g/dL Albumin 3.5 (3.4-5.0) g/dL Globulin 2.9 (2.3-3.5) g/dL Albumin/Globulin Ratio 1.2 (1.2-2.2) Ethyl Alcohol mg/dL 11/05/19 11/05/19 11/05/19 Range/Units 16:18 16:33 20:00 WBC (4.5-11.0) K/uL RBC (4.30-5.90) M/uL Hgb (12.0-15.0) g/dL Hct (40.0-54.0) % MCV (80-98) fL MCH (27-31) pg MCHC (32-36) % Plt Count (150-400) K/uL Neut % (Auto) (36-66) % Lymph % (Auto) (24-44) % [place] % (Auto) (2-6) % Eos % (Auto) (2-4) % Baso % (Auto) (0-1) % D-Dimer, Quantitative (0.0-400.0) ng/mL Sodium (140-148) mmol/L Potassium (3.6-5.2) mmol/L Chloride (100-108) mmol/L Carbon Dioxide (21-32) mmol/L Anion Gap (5.0-14.0) mmol/L BUN (7-18) mg/dL Creatinine (0.8-1.3) mg/dL Est Cr Clr Drug Dosing mL/min Estimated GFR (MDRD) (>60) Glucose (74-106) mg/dL Calcium (8.5-10.1) mg/dL Magnesium 1.8 (1.8-2.4) mg/dL Total Bilirubin (0.2-1.0) mg/dL AST (15-37) U/L ALT (12-78) U/L Alkaline Phosphatase (46-116) U/L Troponin I < 0.017 (0.000-0.056) ng/mL NT-Pro-B Natriuret Pep (5-125) pg/mL Total Protein (6.4-8.2) g/dL Albumin (3.4-5.0) g/dL Globulin (2.3-3.5) g/dL Albumin/Globulin Ratio (1.2-2.2) Ethyl Alcohol < 3 mg/dL Med Orders - Current: Current Medications Acetaminophen (Tylenol) 650 mg PO Q4H PRN PRN Reason: Pain (Mild 1-3)/fever Aspirin (Halfprin) 81 mg PO DAILY [facility] Last Admin: 11/06/19 08:06 Dose: 81 mg Documented by: Diltiazem HCl (Cardizem Cd) 120 mg PO DAILY [facility] Last Admin: 11/06/19 10:27 Dose: 120 mg Documented by: Enoxaparin Sodium (Lovenox) 40 mg SUBCUT Q24H [facility] Last Admin: 11/05/19 18:39 Dose: 40 mg Documented by: Lorazepam (Ativan) 0.5 mg IVPUSH Q4H PRN PRN Reason: Nausea/Vomiting Magnesium Hydroxide (Milk Of Magnesia) 30 ml PO Q12H PRN PRN Reason: Constipation Last Admin: 11/05/19 20:17 Dose: 30 ml Documented by: Ondansetron HCl (Zofran) 4 mg IV Q6H PRN PRN Reason: Nausea/Vomiting Ondansetron HCl (Zofran Odt) 4 mg PO Q6H PRN PRN Reason: Nausea able to take PO Senna/Docusate Sodium (Senna Plus) 1 tab PO BID PRN PRN Reason: Constipation Sodium Chloride (Saline Flush) 10 ml FLUSH ASDIRECTED PRN PRN Reason: Keep Vein Open Discontinued Medications Sodium Chloride (Normal Saline) 1,000 mls @ 500 mls/hr IV ASDIRECTED JACQUES Last Admin: 11/05/19 16:05 Dose: 500 mls/hr Documented by: Diltiazem HCl 100 mg/ Sodium (Chloride) 100 mls @ 5 mls/hr IV TITRATE JACQUES; Protocol Diltiazem HCl 100 mg/ Sodium (Chloride) 100 mls @ 5 mls/hr IV TITRATE JACQUES; Protocol Last Admin: 11/06/19 07:51 Dose: 5 mg/hr, 5 mls/hr Documented by: Sodium Chloride (Normal Saline) 1,000 mls @ 25 mls/hr IV ASDIRECTED JACQUES Metoprolol Succinate (Toprol Xl) 25 mg PO ONETIME ONE Stop: 11/06/19 11:01 Last Admin: 11/06/19 10:27 Dose: 25 mg Documented by: Metoprolol Tartrate (Lopressor) 25 mg PO Q8H JACQUES Last Admin: 11/05/19 18:39 Dose: 25 mg Documented by: Metoprolol Tartrate (Lopressor) 12.5 mg PO Q8H JACQUES Last Admin: 11/06/19 02:13 Dose: 12.5 mg Documented by: Metoprolol Tartrate (Lopressor) 12.5 mg PO Q8H JACQUES Last Admin: 11/06/19 09:41 Dose: 12.5 mg Documented by:
== END 2019-11-06 15:00 | disposition home or self-care (01) ==
LOC: JP.ED 15:17 → JP.ICU 17:10
PROVIDERS: ADMIT Internal Medicine; ATTEND Internal Medicine
DX: I48.0 Paroxysmal atrial fibrillation (principal); G47.33 Obstructive sleep apnea (adult) (pediatric); I42.0 Dilated cardiomyopathy; R06.00 Dyspnea, unspecified; Z79.82 Long term (current) use of aspirin; Z79.899 Other long term (current) drug therapy; Z87.891 Personal history of nicotine dependence
CPT/HCPCS: 36415; 71045; 80053; 80307; 83735; 83880; 84484; 85025; 85379; 93005; 93010; 96365; 96366; 96372; 99285; A9270; G0378; J1650; J3490; J7030; J7050

== ENCOUNTER 2023-01-02 07:02 | Day surgery (SDC) | payer MEDICARE, BC ==
[~2023-01-02 07:02] MED LIST: Propofol 200 MG/20 ML SDV ONE; fentaNYL 100 MCG/2 ML SDV ONE
[2023-01-02] MEDS ORDERED: Sodium Chloride 0.9% 1,000 ML IV SCH (08:00)
== END 2023-01-02 10:01 | disposition home or self-care (01) ==
LOC: JP.SDS 07:02
PROVIDERS: ATTEND Surgery
DX: Z12.11 Encounter for screening for malignant neoplasm of colon (principal); D12.2 Benign neoplasm of ascending colon; D12.3 Benign neoplasm of transverse colon; G47.33 Obstructive sleep apnea (adult) (pediatric); I42.9 Cardiomyopathy, unspecified; I48.91 Unspecified atrial fibrillation; I50.9 Heart failure, unspecified; Z88.8 Allergy status to other drugs, medicaments and biological substances
CPT/HCPCS: 45380; 45385; 88305; J2704; J3010; J7030

== ENCOUNTER 2023-01-25 17:37 | Emergency (ER) | payer MEDICARE, BC ==
[2023-01-25] MEDS ORDERED: Sodium Chloride 0.9% 10 ML Syringe FLUSH PRN (18:11)
[2023-01-25] MEDS ORDERED: Aspirin 81 MG Tab.Chew PO ONE (18:11)
[2023-01-25] MEDS ORDERED: Ketorolac 30 MG/ML SDV IVPUSH ONE (18:12)
[2023-01-25] MEDS ORDERED: Sodium Chloride 0.9% 1,000 ML IV SCH (18:15)
[2023-01-25 18:28] LABS: BASOPHILS PERCENT AUTO 0.5 % (0.1-1.3); EOSINOPHILS PERCENT AUTO 0.2 % (0.0-5.4); HEMATOCRIT 40.8 % (38.4-49.7); HEMOGLOBIN 13.9 g/dL (12.9-16.9); IMMATURE GRAN ABSOLUTE AUTO 0.03 K/uL (0.00-0.23); IMMATURE GRAN PERCENT AUTO 0.7 % (0.0-0.7); LYMPHOCYTES ABSOLUTE AUTO 0.73 K/uL (0.8-3.3); LYMPHOCYTES PERCENT AUTO 17.9 % (11.4-47.7); MEAN CORPUSCULAR HGB CONC 34.1 g/dL (31.6-35.5); MEAN CORPUSCULAR VOLUME 93.8 fL (81.4-99.0); MONOCYTES ABSOLUTE AUTO 0.63 K/uL (0.20-0.90); MONOCYTES PERCENT AUTO 15.5 % (3.3-12.6); NEUTROPHILS ABSOLUTE AUTO 2.65 K/uL (1.0-7.6); NEUTROPHILS PERCENT AUTO 65.2 % (40.0-78.1); PLATELET COUNT,PLT 177 K/uL (130-375); RED BLOOD CELL COUNT 4.35 M/uL (4.14-5.76); WHITE BLOOD CELL COUNT,WBC 4.1 K/uL (3.2-11.0)
[2023-01-25 18:30] LABS: BASOPHILS ABSOLUTE AUTO 0.02 K/uL (0.00-0.10); EOSINOPHILS ABSOLUTE AUTO 0.01 K/uL (0.00-0.40)
[2023-01-25 18:52] LABS: A/G RATIO 0.9 (1.2-2.2); ALANINE AMINOTRANSFERASE,ALT 12 U/L (12-78); ALBUMIN 3.2 g/dL (3.4-5.0); ALKALINE PHOSPHATASE 72 U/L (46-116); ASPARTATE AMNIOTRANSFERASE,AST 14 U/L (15-37); BILIRUBIN TOTAL 0.4 mg/dL (0.2-1.0); BLOOD UREA NITROGEN,BUN 17 mg/dL (7-18); CALCIUM 8.4 mg/dL (8.5-10.1); CARBON DIOXIDE,CO2 31 mmol/L (21-32); CHLORIDE,CL 102 mmol/L (100-108); CREATININE 1.1 mg/dL (0.8-1.3); EST CRCL DRUG DOSING (CG) 64.67 mL/min; ESTIMATED GFR 70 mL/min (>60); GLUCOSE RANDOM 120 mg/dL (74-106); POTASSIUM,K 3.6 mmol/L (3.6-5.2); PROTEIN TOTAL,TP 6.6 g/dL (6.4-8.2); SODIUM,NA 139 mmol/L (140-148); TROPONIN I HIGH SENSITIVITY 7.3 pg/mL (<=60.3)
[2023-01-25 18:53] LABS: ANION GAP 9.6 mmol/L (5.0-14.0)
[2023-01-25] MEDS ORDERED: Sodium Chloride 0.9% 1,000 ML IV ONE (19:00)
== END 2023-01-25 20:45 | disposition home or self-care (01) ==
LOC: JP.ED 17:37
DX: R07.89 Other chest pain (principal); I48.91 Unspecified atrial fibrillation; Z79.01 Long term (current) use of anticoagulants; Z88.8 Allergy status to other drugs, medicaments and biological substances; Z79.899 Other long term (current) drug therapy
CPT/HCPCS: 36415; 71046; 80053; 83605; 83690; 84484; 85025; 93005; 99285; A9270; J1885; J3490; J7030

== ENCOUNTER 2024-04-08 14:59 | Emergency (ER) | payer MEDICARE, BC | END 2024-04-08 16:44 | disposition home or self-care (01) | LOC: JP.ED 14:59 | DX: L03.116 Cellulitis of left lower limb (principal); I10 Essential (primary) hypertension; Z88.8 Allergy status to other drugs, medicaments and biological substances; Z79.899 Other long term (current) drug therapy | CPT/HCPCS: 99283 ==